=== PATIENT | male | born 1945 | race Caucasian/White ===

== ENCOUNTER 2022-10-03 08:48 | Outpatient (CLI) | payer MEDICARE, BC ==
[2022-10-03 11:00] LABS: BASOPHILS % (AUTO) 0.5 % (0.0-2.0); EOSINOPHILS % (AUTO) 4.4 % (0.0-6.0); HEMATOCRIT 39 % (39-51); HEMOGLOBIN 12.9 g/dL (13.5-17.5); MEAN CORPUSCULAR HGB CONC 33 g/dl (31.0-36.0); MEAN CORPUSCULAR VOLUME 93 fL (80-96); MONOCYTES # (AUTO) 0.8 K/uL (0.1-1.30); MONOCYTES % (AUTO) 12.2 % (2.0-12.0); NEUTROPHILS % (AUTO) 65.9 % (43.0-81.0); PLATELET COUNT (AUTO) 195 K/uL (150-450); RED BLOOD CELL COUNT(AUTO) 4.18 MIL/uL (4.5-6.0); WHITE BLOOD COUNT (AUTO) 6.1 K/uL (4.3-11.0)
[2022-10-03 11:01] LABS: BILIRUBIN,URINE NEGATIVE (NEGATIVE); COLOR,URINE YELLOW (YELLOW); LEUKOCYTE ESTERASE ,URINE NEGATIVE (NEGATIVE); NITRITE, URINE NEGATIVE (NEGATIVE); PROTEIN,URINE NEGATIVE (NEGATIVE); UGLUCOSE NEGATIVE (NEGATIVE); UROBILINOGEN,URINE 0.2 EU/dL (0.2)
[2022-10-03 11:03] LABS: CALCIUM, SERUM 9.1 mg/dL (8.5-10.1); CARBON DIOXIDE 29 mmol/L (21-32); CHLORIDE 107 mmol/L (98-107); CREATININE 1.1 mg/dL (0.6-1.3); GLUCOSE 97 mg/dL (74-106); POTASSIUM 4.4 mmol/L (3.5-5.1); SODIUM SERUM 141 mmol/L (136-145); UREA NITROGEN, BLOOD 22 mg/dL (7-18)
== END 2022-10-03 23:59 | disposition home or self-care (01) ==
LOC: RAD 08:48
PROVIDERS: ATTEND Internal Medicine Pulmonary Disease
DX: Z01.818 Encounter for other preprocedural examination (principal); R94.31 Abnormal electrocardiogram [ECG] [EKG]
CPT/HCPCS: 36415; 71046; 80048-TC; 85025-TC; 85610-TC; 85730-TC

== ENCOUNTER 2022-10-08 11:54 | Outpatient (CLI) | payer MEDICARE, BC | END 2022-10-08 23:59 | disposition home or self-care (01) | LOC: LAB 11:54 | PROVIDERS: ATTEND Dentist Oral and Maxillofacial Surgery | DX: Z01.812 Encounter for preprocedural laboratory examination (principal); Z20.822 Contact with and (suspected) exposure to COVID-19 | CPT/HCPCS: U0003; C9803 ==

== ENCOUNTER 2022-10-12 09:03 | Day surgery (SDC) | payer MEDICARE, BC ==
[2022-10-12] MEDS ORDERED: FAMOTIDINE/PF INJ 20 MG/2 ML VIAL IV ONE (11:17)
[2022-10-12] MEDS ORDERED: KETAMINE HCL IN 0.9 % NACL 5 ML ONE (11:17)
[2022-10-12] MEDS ORDERED: FENTANYL PF 100MCG/2ML AMPUL ONE (11:17)
[2022-10-12] MEDS ORDERED: ROCURONIUM BROMIDE 50 MG/5 ML ONE (11:17)
[2022-10-12] MEDS ORDERED: LIDOCAINE 2%-EPI 1:100,000 30 ML VIAL ONE (11:23)
[2022-10-12] MEDS ORDERED: VANCOMYCIN 1 GM VIAL ONE (11:24)
[2022-10-12] MEDS ORDERED: DEXAMETHASONE SOD PHOSPHATE 10 MG/ML VIAL ONE (11:24)
[2022-10-12] MEDS ORDERED: LABETALOL HCL IV 100MG VIAL ONE (12:09)
--- NOTE | 2022-10-12 14:28 | NUR ---
RN NOTES PATIENT CAME BACK FROM SURGERY A/OX4, ON RA, TOLERATING WELL. NO CARDIAC AND RESPIRATORY DISTRESS NOTED. VITALS TAKEN, STABLE AND RECORDED. NO COMPLICATIONS NOTED. WILL CHECK FROM TIME TO TIME.
[2022-10-12] MEDS ORDERED: HYDROMORPHONE 1 MG/1 ML DISP.SYRIN IV PRN (15:30)
[2022-10-12] MEDS ORDERED: ONDANSETRON HCL/PF 4 MG/2 ML VIAL IVP PRN (15:30)
[2022-10-12] MEDS ORDERED: IV NS 0.9% 1,000 ML IV PRN (15:30)
--- NOTE | 2022-10-12 15:39 | NUR ---
DISCHARGED NOTES PATIENT DISCHARGED TO HOME IN STABLE CONDITION, A/OX4. ON RA, TOLERATING WELL. VITALS TAKEN, STABLE AND RECORD. DISCHARGED INSTRUCTIONS/ EDUCATION RELAYED TO PATIENT VERBALIZED UNDERSTANDING. ALL BELONGINGS ACCOUNTED TO THE PATIENT. IV ACCESS REMOVED ASEPTICALLY. PATIENT LEFT THE UNIT VIA WHEELCHAIR ACCOMPANIED BY BELEM HUNTER. 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 DISCHARGED.
== END 2022-10-12 18:00 | disposition home or self-care (01) ==
LOC: DS 09:03 → MED 09:04 → UNDOADMIN 09:04 → UNDODISIN 16:07 → DS 18:00
PROVIDERS: ATTEND Dentist Oral and Maxillofacial Surgery
DX: D16.5 Benign neoplasm of lower jaw bone (principal); M27.2 Inflammatory conditions of jaws; S02.609B Fracture of mandible, unspecified, initial encounter for open fracture; X58.XXXA Exposure to other specified factors, initial encounter; Y92.89 Other specified places as the place of occurrence of the external cause; M84.9 Disorder of continuity of bone, unspecified; K08.109 Complete loss of teeth, unspecified cause, unspecified class
CPT/HCPCS: 21461; 21215; 21046; 88311; 88312; 88305; J1100; J2704; J3010; J3490 ×5; J2370; J2765; J1885; J3370; J2405; C1713 ×2; A4217; G0378

== ENCOUNTER 2023-05-24 05:50 | Inpatient (IN) | payer MEDICARE, BC ==
[~2023-05-24] VITALS: Ht 157.5 cm; Wt 55.3 kg
[2023-05-24 06:00] VITALS: BP 121/71; TEMP 98.4; O2SAT 96
[2023-05-24] MEDS ORDERED: ANESTHESIA TRAY IN PYXIS 1 EA TRAY MC ONE (06:57)
[2023-05-24] MEDS ORDERED: LIDOCAINE 2%-EPI 1:100,000 30 ML VIAL ONE (06:57)
[2023-05-24] MEDS ORDERED: VANCOMYCIN 1 GM VIAL ONE (06:58)
[2023-05-24] MEDS ORDERED: ROCURONIUM BROMIDE 50 MG/5 ML ONE ×2 (07:10)
[2023-05-24] MEDS ORDERED: FENTANYL PF 100MCG/2ML AMPUL ONE (07:11)
[2023-05-24] MEDS ORDERED: SEVOFLURANE 250 ML BOTTLE IH ONE (07:35)
[2023-05-24] MEDS ORDERED: OMEP20TA20 PO (10:24)
[2023-05-24] MEDS ORDERED: VIT1CAPS44 PO (10:24)
[2023-05-24] MEDS ORDERED: ATOR20TA PO (10:24)
[2023-05-24] MEDS ORDERED: MULT-754 PO (10:24)
[2023-05-24] MEDS ORDERED: ASPI-1169 PO (10:24)
== END 2023-05-24 10:35 | disposition left against medical advice (07) | DRG 908 ==
LOC: DS 05:50 → MED 05:52
PROVIDERS: ADMIT Student in an Organized Health Care Education/Training Program; ATTEND Student in an Organized Health Care Education/Training Program
PROC: 0NPW04Z Removal of Internal Fixation Device from Facial Bone, Open Approach (ICD-10-PCS; principal; 2023-05-24)
PROC: 0CQ7XZZ Repair Tongue, External Approach (ICD-10-PCS; 2023-05-24)
PROC: 0NPW0JZ Removal of Synthetic Substitute from Facial Bone, Open Approach (ICD-10-PCS; 2023-05-24)
PROC: 0NST04Z Reposition Right Mandible with Internal Fixation Device, Open Approach (ICD-10-PCS; 2023-05-24)
PROC: 0NBT0ZX Excision of Right Mandible, Open Approach, Diagnostic (ICD-10-PCS; 2023-05-24)
DX: T86.831 Bone graft failure (principal); K11.4 Fistula of salivary gland; M87.88 Other osteonecrosis, other site; S02.69XK Fracture of mandible of other specified site, subsequent encounter for fracture with nonunion; T84.69XA Infection and inflammatory reaction due to internal fixation device of other site, initial encounter; T84.7XXA Infection and inflammatory reaction due to other internal orthopedic prosthetic devices, implants and grafts, initial encounter; K21.9 Gastro-esophageal reflux disease without esophagitis; J45.909 Unspecified asthma, uncomplicated; E78.5 Hyperlipidemia, unspecified; Y83.8 Other surgical procedures as the cause of abnormal reaction of the patient, or of later complication, without mention of misadventure at the time of the procedure; S01.512A Laceration without foreign body of oral cavity, initial encounter; Y83.2 Surgical operation with anastomosis, bypass or graft as the cause of abnormal reaction of the patient, or of later complication, without mention of misadventure at the time of the procedure; Y92.009 Unspecified place in unspecified non-institutional (private) residence as the place of occurrence of the external cause; J43.9 Emphysema, unspecified
CPT/HCPCS: 87081-TC; G0378; J0461; J0690; J1100; J2704; J3010; J3370; J3490